=== PATIENT | female | born 1980 | race Caucasian/White ===

== ENCOUNTER 2023-12-07 18:43 | Emergency (ER) | payer OTHER ==
[2023-12-07 19:34] LABS: BHCG - Serum Negative (NEGATIVE); Pregs Control Background? CLEAR/WHITE (CLR/WHITE); Pregs Control Bar Appear? YES (CONTROL BAR)
[2023-12-07 19:42] LABS: Bilirubin Small (Negative); Blood, Urine Negative (Negative); Clarity Cloudy (Clear); Glucose, Urine (Dipstick) Negative (Negative); Ketone, Urine Negative (Negative); Leukocyte Negative (Negative); Nitrite Negative (Negative); Protein, Urine (Dipstick) 30 mg/dL (Neg-Trace); Urobilinogen 0.2 mg/dL (Less than 2)
[2023-12-07 19:43] LABS: ALT (SGPT) 16 U/L (8-55); AST (SGOT) 9 U/L (5-34); Albumin 3.7 g/dL (3.5-5.0); Alkaline Phosphatase 64 U/L (40-110); Anion Gap 17 mmol/L (10-20); BUN (Urea Nitrogen) 10 mg/dL (7.0-18.7); Bilirubin, Total 0.3 mg/dL (0.2-1.2); Calc. Creatinine Clearance 0 mL/min (70-130); Carbon Dioxide 19 mmol/L (22-29); Chloride 106 mmol/L (98-107); Estimated GFR 53; Globulin 3.5 g/dL (2.4-3.5); Glucose 120 mg/dL (70-105); Magnesium 1.8 mg/dL (1.6-2.6); Potassium 3.5 mmol/L (3.5-5.1); Protein, Total 7.2 g/dL (6.0-8.3); Sodium 138 mmol/L (136-145)
[2023-12-07 19:44] LABS: Troponin I Less than 0.010 ng/mL (< 0.028)
[2023-12-07 19:47] LABS: Hematocrit 43.1 % (36.0-47.0); Mean Corpuscular HGB CONC 32.4 g/dL (32.0-36.0); Mean Corpuscular Hemoglobin 31.4 pg (27.0-31.0); Mean Corpuscular Volume 96.9 fl (78.0-98.0); Mean Platelet Volume 6.5 fL (7.4-10.4); Platelet Count 300 10x3/uL (130-400); RBC Distribution Width 11.2 % (11.5-14.5); Red Blood Cell (RBC) Count 4.44 mill/uL (4.20-5.40); White Blood Cell (WBC) Count 11.2 10x3/uL (4.8-10.8)
[2023-12-07 19:53] LABS: Specific Gravity, Urine 1.025 (1.002-1.036)
[2023-12-07 19:55] LABS: Bacteria/HPF 2+ HPF (None Seen); CAUTI Indications for Culture Fever or rigors; RBC/HPF None Seen HPF (0-3); WBC/HPF 0-3 HPF (0-3)
[2023-12-07 19:56] LABS: Urine Culture Reflex No No
[2023-12-07] MEDS ORDERED: Sodium Chloride 0.9% 1,000 ML ONE (19:57)
[2023-12-07] MEDS ORDERED: Promethazine HCl 25 MG/ML VIAL ONE (19:57)
[2023-12-07 20:01] LABS: Neutrophil 64 % (42-75)
[2023-12-07 20:02] LABS: Anisocytosis SLIGHT = 6-15 cells (100X) (0-5/hpf); Hypochromia SLIGHT = 6-15 cells (100X) (0-5/hpf); Lymphocytes 23 % (21-51); Monocytes 5 % (0-10); Platelet Adequacy Comment Appears Adequate; Reactive Lymphocytes 8 % (0-10)
[2023-12-07 20:03] LABS: MDiff Complete? YES; Manual Diff?? YES
[2023-12-07 20:07] LABS: Influenza A by NAA Not Detected (NotDetected); Influenza B by NAA Not Detected (NotDetected); SARS-CoV-2 NAA Rapid Test Not Detected (NotDetected)
== END 2023-12-07 20:50 | disposition home or self-care (01) ==
LOC: MADERS 18:43
DX: R00.2 Palpitations (principal); E03.9 Hypothyroidism, unspecified; Z55.6 Problems related to health literacy
CPT/HCPCS: 36415; 71045; 80053; 81001; 83735; 84443; 84484; 84703; 85025; 93005; 96365; J2550; J7030

== ENCOUNTER 2025-03-14 12:23 | Emergency (ER) | payer OTHER ==
[2025-03-14] MEDS ORDERED: Boostrix 0.5 ML (Tdap) VIAL (>/=7 yrs of age) ONE (13:38)
[2025-03-14] MEDS ORDERED: Ketorolac Tromethamine 30 MG (1 mL) VIAL ONE (13:39)
== END 2025-03-14 14:28 | disposition home or self-care (01) ==
LOC: MADERS 12:23
DX: S60.022A Contusion of left index finger without damage to nail, initial encounter (principal); S00.33XA Contusion of nose, initial encounter; K21.9 Gastro-esophageal reflux disease without esophagitis; E03.9 Hypothyroidism, unspecified; W30.9XXA Contact with unspecified agricultural machinery, initial encounter; Z79.899 Other long term (current) drug therapy
CPT/HCPCS: 70486; 90471; 90715; 96372; J1885

== ENCOUNTER 2025-04-18 12:19 | Emergency (ER) | payer OTHER ==
[~2025-04-18 12:19] MED LIST: Iopamidol 370 76% 100 ML VIAL ONE
[2025-04-18] MEDS ORDERED: Ketorolac Tromethamine 30 MG (1 mL) VIAL ONE (13:00)
[2025-04-18] MEDS ORDERED: Simethicone Chewable 80 MG TAB ONE (13:00)
[2025-04-18 13:08] LABS: #Basophils 0.2 thou/uL (0.0-0.2); #Eosinophils 0.1 thou/uL (0.0-0.7); #Lymphocytes 4.6 thou/uL (1.20-3.40); #Monocytes 0.8 thou/uL (0.11-0.59); #Neutrophils 7.9 thou/uL (1.40-6.50); %Basophils 1.7 % (0.0-1.0); %Eosinophils 1.0 % (0.0-10.0); %Lymphocytes 33.5 % (21.0-51.0); %Monocytes 6.1 % (0.0-10.0); %Neutrophils 57.8 % (42.0-75.0); Hematocrit 44.6 % (36.0-47.0); Hemoglobin 14.3 g/dL (12.0-16.0); Mean Corpuscular Hemoglobin 30.8 pg (27.0-31.0); Mean Corpuscular Volume 96.2 fl (78.0-98.0); Platelet Count 294 10x3/uL (130-400); Red Blood Cell (RBC) Count 4.64 mill/uL (4.20-5.40); White Blood Cell (WBC) Count 13.6 10x3/uL (4.8-10.8)
[2025-04-18 13:19] LABS: ALT (SGPT) 18 U/L (Less than 34); AST (SGOT) 25 U/L (11-34); Albumin 4.0 g/dL (3.1-4.5); Alkaline Phosphatase 65 U/L (40-110); Anion Gap 17 mmol/L (10-20); BUN (Urea Nitrogen) 14 mg/dL (7.0-18.7); Bilirubin, Total 0.3 mg/dL (0.3-1.2); Calc. Creatinine Clearance 0 mL/min (70-130); Calcium 9.3 mg/dL (7.8-10.44); Carbon Dioxide 23 mmol/L (22-29); Chloride 101 mmol/L (98-107); Globulin 3.5 g/dL (2.4-3.5); Glucose 96 mg/dL (70-105); Lipase 16 U/L (8-78); Potassium 4.2 mmol/L (3.5-5.1); Sodium 137 mmol/L (136-145)
[2025-04-18 13:57] LABS: Glucose, Urine (Dipstick) Negative (Negative); Leukocyte Negative (Negative); Protein, Urine (Dipstick) Negative (Neg-Trace); Specific Gravity, Urine 1.015 (1.005-1.030)
[2025-04-18 14:00] LABS: CAUTI Indications for Culture Pelvic or flank pain; RBC/HPF 0-3 HPF (0-3); WBC/HPF 0-3 HPF (0-3)
[2025-04-18 14:01] LABS: Urine Culture Reflex No No
[2025-04-18] MEDS ORDERED: Acetaminophen 500 MG TAB ONE (14:01)
== END 2025-04-18 15:05 | disposition home or self-care (01) ==
LOC: MADERS 12:19
DX: R10.9 Unspecified abdominal pain (principal); K21.9 Gastro-esophageal reflux disease without esophagitis; E03.9 Hypothyroidism, unspecified; Z79.899 Other long term (current) drug therapy; Z79.890 Hormone replacement therapy
CPT/HCPCS: 74177; 80053; 81001; 83605; 83690; 85025; 96372; 96374; 96375; J1885; J2270; J2550; Q9967